=== PATIENT | female | born 1975 | race Caucasian/White ===

== ENCOUNTER → 2016-08-03 | Outpatient (CLI) | payer OTHER ==
[~2016-08-03] MED LIST: ACIPHEX 20 MG T20 MG PO; ALLERGY10 M1 PO; AURALGAN OT10 ML/BOT OT; CIPRO HC 0.2%-110 ML OT; DOXYCYCLINE HY100 MG PO; HYOSCYAMINE0.125 M6 SL; METOPROLOL 25 M25 MG PO; METOPROLOL SUCC50 M1 PO; PYRIDIUM100 MG PO; TRAZODONE 50MG50 MG PO; VICODIN 5/500 T1 TAB PO; VOLTAREN75 MG PO; ZITHROMAX Z PA250 MG PO; ZOLPIDEM TART12.5 MG PO; [UNRECOGNIZED DRUG - OTHER] OP
--- NOTE | 2016-08-03 16:31 | RADIOLOGY REPORT PS360 ---
US PELVIS-TRANSVAGINAL ONLY ORDERING PHYSICIAN : Joni Sanchez MD PATIENT AGE: 40 years GENDER: Female INDICATION: PLQ PAIN RLQ pain vomiting diarrhea 1 day. Patient deposition. TECHNIQUE: Transvaginal pelvic ultrasound COMPARISON: Previous CT abdomen and pelvis 04/27/2013 FINDINGS UTERUS.: Normal size 6.4 cm length x2.8 x 3.6 cm wide. No fibroids. Tiny echogenic focus along endometrial stripe at body of uterus.- Nonspecific may reflect small calcification or tiny polyp possibly. Endometrial stripe however appears fairly normal measuring 4.5 mm AP but may become slightly more generous towards cervix.. No fluid at cul-de-sac. Right Ovary 1.9 cm x 2.8 cm x 2 cm with transabdominal imaging. . Small follicle 9 mm size. Vaguely evident Difficult to visualize right ovary. Was scanned both transvaginal and trans abdominal in order to survey right adnexa as well as right lower quadrant. Right ovary Measurements are slightly larger with the transabdominal scanning versus Tv. Left Ovary larger than right Left ovary: 2.9 cm x 1.8 cm x 1.53 cm Follicular Cysts at left ovary: Largest measuring nearly 1.2 cm x 0.8 cm posteriorly. Another more anteriorly measuring 1.1 cm IMPRESSION: Ovaries appear relatively small/normal size bilateral with bilateral follicular cysts. More posterior right ovary more difficult to visualize Right adnexa & RLQ image image with transvaginal and transabdominal scanning. No additional findings seen RLQ with limited ultrasound survey No fluid in cul-de-sac more towards right adnexa. Uterus appears normal in size. Small echogenic focus endometrium mid right uterus reflect small calcification. Doubt tiny polyp
--- NOTE | 2016-08-03 16:31 | RADIOLOGY REPORT PS360 ---
US ABD(COMPLETE-MULTI ORGANS ORDERING PHYSICIAN : Joni Sanchez MD PATIENT AGE: 40 years GENDER: Female INDICATION: PLQ PAIN Nausea and vomiting right lower quadrant pain TECHNIQUE: ] Ultrasound abdomen, complete COMPARISON: CT abdomen pelvis 04/27/2013 FINDINGS Pancreas unremarkable Liver. No focal lesions. No bili ductal dilatation. Portal vein normal direction flow. Normal size. Gallbladder. Surgically absent Common duct measuring up to 6 mm just inferior to the hilum of liver. Upper normal caliber likely reflecting previous cholecystectomy changes. Kidneys appear normal size and appearance bilaterally. Cortex well-maintained bilateral . No hydronephrosis nor mass. Either kidney Right kidney. 9.6 cm length Left kidney 9.8 cm length Spleen. Normal size unremarkable. 9.5 cm length. Aorta normal caliber. No aneurysm. It measures up to 1.6 cm proximal and then Tapers as it continues distal IMPRESSION-------- Unremarkable ultrasound upper abdomen. No abnormalities identified Gallbladder surgically removed. Slight Generous common duct-just over 7 mm size reflecting previous cholecystectomy Kidneys unremarkable
== END ==
LOC: RAD 12:53
DX: R10.31 Right lower quadrant pain (principal)

== ENCOUNTER 2016-08-04 11:08 | Emergency (ER) | payer OTHER ==
[~2016-08-04] VITALS: Ht 167.6 cm; Wt 97.5 kg
[~2016-08-04 11:08] MED LIST changes: -DOXYCYCLINE HY100 MG PO; -HYOSCYAMINE0.125 M6 SL; -METOPROLOL SUCC50 M1 PO; -ZOLPIDEM TART12.5 MG PO
[2016-08-04] MEDS ORDERED: HYOSCYAMINE0.125 M6 SL (11:25)
[2016-08-04] MEDS ORDERED: DOXYCYCLINE HY100 MG PO (11:25)
[2016-08-04] MEDS ORDERED: ZOLPIDEM TART12.5 MG PO (11:28)
--- NOTE | 2016-08-04 11:28 | Emergency Room Report ---
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 N Clinical Suspician of Infection? N Mental Status: 1 - Regular (Normal Baseline) Sepsis Risk:Low Sepsis Risk Have you (or family members/close friends) recently traveled outside the [place]? N If Yes, where/when: Have you had exposure to infectious disease within the past month? N TB? Other? Specify: Watery stools for the last 2.5 days, started on Doxy for acne ten days ago. No fever. No blood from above or below. No sick contacts. Cramping in periumbilical area and RUQ and RLQ with negative US done yesterday per PCP Dr. Sanchez. LMP ten years ago, on Depo. No vaginal discharge or bleeding; some dysuria. No flank pain. No flu sx. NPO since yesterday due to diminished appetite and cramping when trying to drink fluids. ALLERGIES Coded Allergies: Penicillins (10/21/15) Home Medications Active Scripts NAPHAZOLINE HCL/PHENIRAMINE (Visine-A Eye Drops) 1 DROP OP 5XDAY 7 Days Prov: 03/18/14 Reported Medications Hyoscyamine Sulfate 0.125 MG SL DAILY #60 Doxycycline Hyclate 100 MG PO DAILY #60 Zolpidem Tartrate (Zolpidem Tartrate ER) 12.5 MG PO DAILY #30 Metoprolol Succinate Xl (Metoprolol ER 50MG) 50 MG PO DAILY #90 Loratadine 10 MG PO DAILY Rabeprazole Sodium (Aciphex 20Mg) 20 MG PO DAILY Metoprolol Tartrate (Metoprolol 25MG) 25 MG PO DAILY History Medical History General Angina: No [place]: No Hypertension? Yes Hyperlipidemia? No CHF? No COPD? No Asthma? No CVA? No Seizures? No Diabetes? No GB Disease: No Arthritis? Yes MRSA? No TB? No Cancer? 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 Physical Exam Vital Signs Vital Signs Date Time Temp Pulse Resp B/P Pulse O2 O2 Flow FiO2 Ox Delivery Rate 08/04 1348 79 20 120/75 97 08/04 1247 103 20 112/69 96 08/04 1114 98.4 138 18 127/90 97 General Appearance normal appearance, WD/WN, no apparent distress Eye Exam - bilateral eye normal exam Neck normal inspection, supple, full range of motion Respiratory Status Yes: trachea midline, chest symmetrical, non tender chest. No: respiratory distress, tender on palpation, use of accessory muscles, pain on inspiration, pain on expiration, productive cough, non productive cough. Lung Sounds bilateral: normal breath sounds, lungs clear. Cardiovascular normal exam, no peripheral edema, no gallop, no JVD, tachycardia Gastrointestinal normal bowel sounds, soft, no organomegaly, no guarding, no rebound (minimally tender RUQ/RLQ), neg psoas and neg obturator signs Neurologic alert, normal exam, no motor/sensory deficits Skin intact, normal color Medical Decision Making LABS/Meds/Orders Pt receiving controlled substance in ED? No Results/Orders Laboratory Tests 08/04/16 1208: Urine Color YELLOW, Urine Appearance SL CLOUDY, Urine pH 6.0, Ur Specific [place] >= 1.030, Urine Protein 1+ H, Urine Ketones TRACE H, Urine Blood 1+ H , Urine Nitrate NEGATIVE, Urine Bilirubin NEGATIVE, Urine Urobilinogen 0.2, Ur Leukocyte Esterase NEGATIVE, Urine WBC 3-5, Ur Squamous Epith Cells 5-10, Urine Bacteria 3+, Fine Granular Casts OCC, Urine Mucus 4+, Urine Glucose NEGATIVE 08/04/16 1140: Sodium 137, Potassium 3.0 L, Chloride 103, Carbon Dioxide 20 L, BUN 18, Creatinine 0.9, Estimated Creat Clear 127, Estimated GFR (MDRD) 69, Glucose 109 H, Calcium 8.6, Total Bilirubin 0.4, AST 22, ALT 44, Alkaline Phosphatase 88, Total Protein 7.6, Albumin 3.8, Globulin 3.8 H, Albumin/Globulin Ratio 1.0 L, Lipase 63 L, WBC 6.0, RBC 5.38, Hgb 16.0, Hct 47.5 H, MCV 88.2, RDW 14.0, Plt Count 218, MPV 10.0, Gran % 69.5, Gran # 4.2, Lymphocytes % 19.5, Monocytes % 7.9, Eosinophils % 2.6, Basophils % 0.4, Lymphocytes # 1.2, Monocytes # 0.5, Eosinophils # 0.2, Basophils # 0.0, PUBS MCHC 33.8, MCH 29.8 Current Medication Orders Sig/Tom Start time Last Medication Dose Route Stop Time Status Admin Potassium Chloride 0 .STK-MED ONE 08/04 1305 DC .ROUTE Lactated Ringer's 1,000 ML .STK-MED ONE 08/04 1300 DC IV Potassium Chloride 0 .STK-MED ONE 08/04 1300 DC PO Ondansetron HCl 0 .STK-MED ONE 08/04 1259 DC .ROUTE Ondansetron HCl 4 MG ONCE ONE 08/04 1215 DC 08/04 IV 08/04 1216 1308 Potassium Chloride 20 MEQ ONCE ONE 08/04 1215 DC 08/04 PO 08/04 1216 1307 Sodium Chloride 10 ML PRN PRN 08/04 1145 AC IV 08/05 1131 Lactated Ringer's 1,000 ML .STK-MED ONE 08/04 1143 DC IV Lactated Ringer's 1,000 ML .Q1H1M 08/04 1130 DC 08/04 IV 08/04 1230 1145 Sodium Chloride 10 ML PRN PRN 08/04 1130 AC IV 08/05 1130 Orders Procedure Date/time Status DIET-NOTHING BY MOUTH 08/04 D Active CULTURE, URINE 08/04 1208 Active ELECTROCARDIOGRAM REQUEST 08/[address] ABD/PELVIS REQ 08/04 1143 Active IV SALINE LOCK 08/04 1131 Active URINALYSIS/COMPLETE 08/04 1131 Complete URINE 08/04 1131 Complete LIPASE 08/04 1131 Complete CBC WITH AUTO DIFF 08/04 1131 Complete CHEM 12 PROFILE 08/04 1131 Complete 12 LEAD EKG-JOVANNI (INITIAL) 08/04 UNK Active CM/EKG CM/EKG EKG rate, NSR, rhythm, no ectopy, normal QRS, normal [place], normal EKG (slightly flat T waves ) XRAY/CT/US XRAY/CT/US CT abdomen, pelvis CT interpretation by reviewed by me (report reviewed) Time results known: 1331 CT Results normal/NAD (neg acute per radiology) Departure Departure Time of Disposition 1331 Disposition DC Home or Self Care(routine) Clinical Impression Primary Impression: Diarrhea Qualifiers: Diarrhea type: unspecified type Qualified Code: R19.7 - Diarrhea, unspecified Secondary Impressions: Hypokalemia Condition STABLE Referrals José Miguel Dumont MD (Family) Patient Instructions Diarrhea Additional Instructions Stop Doxycycline; see Dr. Dumont in two to five days, push Gatorade and other clear fluids Discharge Counseling Counseled pt/family regarding diagnosis, test results, home care, follow up needs ED Critical Care Critical Care No at 1351
[2016-08-04] MEDS ORDERED: METOPROLOL SUCC50 M1 PO (11:29)
[2016-08-04 11:50] LABS: LYMPH # 1.2 K/mm3 (0.7-4.5); LYMPH % 19.5 % (10-50.0)
[2016-08-04 12:12] LABS: URINE BLOOD 1+ (NEG)
[2016-08-04 12:15] LABS: URINE BILIRUBIN - DIPSTICK NEGATIVE (NEG)
--- NOTE | 2016-08-04 13:10 | RADIOLOGY REPORT PS360 ---
CT ABD PELVIS W/O CONTRAST CLINICAL INDICATION: DIMINISHED APPETITE FOR 3 DAYS,DIARRHEA,RUQ,RLQ ABD PAIN ORDERING PHYSICIAN: Amy Haque MD PATIENT AGE: 40 years COMPARISON: None TECHNIQUE: Axial images obtained with sagittal and coronal reformats. PROCEDURE: Oral Contrast: None IV Contrast: None . FINDINGS: Lower thorax: No acute finding ABDOMEN: Liver: No masses or biliary dilatation. Gallbladder: Status post cholecystectomy. No obvious biliary dilatation Pancreas: No masses or peripancreatic fluid collections. Spleen: Unremarkable. Adrenals: Unremarkable Kidneys/ureters: No masses. Nonobstructive right renal calculi. No hydronephrosis. No perinephric fluid collections. No ureteral dilatation or obvious ureteral calculi. Stomach bowel: Nondistended. No obvious mass or thickening. Appendix: No evidence of appendicitis. PELVIS: Reproductive: Unremarkable Bladder: Nondistended. No obvious stones or masses. ABDOMEN & PELVIS: Peritoneum: No abnormal fluid collections. No obvious inflammatory changes. No free air. Lymph nodes: No enlarged lymph nodes apparent. Vasculature: No evidence of abdominal aortic aneurysm. No retroperitoneal hemorrhage evident. Bones: No acute fracture IMPRESSION: 1. No acute intra-abdominal or pelvic pathology. 2. Prior cholecystectomy 3. Nonobstructing right renal calculus
[2016-08-04 14:00] VITALS: BP 128/74
== END 2016-08-04 14:05 | disposition home or self-care (01) ==
LOC: ER 11:08
PROVIDERS: Emergency Medicine
DX: R19.7 Diarrhea, unspecified (principal); E87.6 Hypokalemia; I10 Essential (primary) hypertension
CPT/HCPCS: J2405

== ENCOUNTER → 2016-08-05 | Outpatient (CLI) | payer OTHER ==
[~2016-08-05] MED LIST changes: +DOXYCYCLINE HY100 MG PO; +HYOSCYAMINE0.125 M6 SL; +METOPROLOL SUCC50 M1 PO; +ZOLPIDEM TART12.5 MG PO
[2016-08-05 12:44] LABS: AEROMONAS NOT DETECTED (NOT DETECTE); ASTROVIRUS NOT DETECTED (NOT DETECTE); CYCLOSPORA CAYETANENSIS NOT DETECTED (NOT DETECTE); E COLI O157 NOT DETECTED (NOT DETECTE); ENTEROAGGREGATIVE E COLI NOT DETECTED (NOT DETECTE); ENTEROPATHOGENIC E COLI NOT DETECTED (NOT DETECTE); ENTEROTOXIGENIC E COLI NOT DETECTED (NOT DETECTE); SAPOVIRUS NOT DETECTED (NOT DETECTE); SHIGA-LIKE TOXIN PROD. E COLI NOT DETECTED (NOT DETECTE); SHIGELLA/ENTEROINVASIVE E COLI NOT DETECTED (NOT DETECTE); VIBRIO CHOLERAE NOT DETECTED (NOT DETECTE)
[2016-08-05 19:25] LABS: NOROVIRUS DETECTED (NOT DETECTE)
== END ==
LOC: LAB 12:43
PROVIDERS: Physician Assistant
DX: R19.7 Diarrhea, unspecified (principal)

== ENCOUNTER 2017-05-04 18:48 | Emergency (ER) | payer OTHER ==
[~2017-05-04] VITALS: Ht 167.6 cm; Wt 83.9 kg
[~2017-05-04 18:48] MED LIST changes: +CYMBALTA60 MG PO; +IBUPROFEN800 MG PO
--- OUTSIDE RECORDS SUMMARY | 2017-05-04 18:54 | External Medical Summary Rpt | CCD ---
Author Author [facility] Address Unknown Phone Purpose Continuity of Care Document - through 2016
--- OUTSIDE RECORDS SUMMARY | 2017-05-04 18:54 | External Medical Summary Rpt | CCD ---
Author Author [employer] Organization [employer] Address Unknown Phone Unavailable Purpose Continuity of Care Document - through 2016
--- OUTSIDE RECORDS SUMMARY | 2017-05-04 18:54 | External Medical Summary Rpt ---
Author Author [facility]IR Otoole, SAMIR Otoole Organization [employer] Address Unknown Phone Unavailable
--- OUTSIDE RECORDS SUMMARY | 2017-05-04 18:54 | External Medical Summary Rpt | CCD ---
Demographics Preferred Language Greek Marital Status Unknown Jehovah'S Witness Affiliation Unknown Race Unknown Ethnic Group Unknown Author Author SAMIR Address Unknown Phone Immunization No patient found.
--- OUTSIDE RECORDS SUMMARY | 2017-05-04 18:54 | External Medical Summary Rpt | CCD ---
Demographics Preferred Language Tongan Marital Status Unknown Yazdanism Affiliation Unknown Race Unknown Ethnic Group Unknown Author Author SAMIR Address Unknown Phone Immunization No patient found.
[2017-05-04 19:05] LABS: HEMOGLOBIN 15.2 g/dL (12.2-16.2); LYMPH % 25.5 % (10-50.0)
--- NOTE | 2017-05-04 19:08 | Emergency Room Report ---
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 Clinical Suspician of Infection? Mental Status: Sepsis Risk: Have you (or family members/close friends) recently traveled outside the [place]? If Yes, where/when: Have you had exposure to infectious disease within the past month? TB? Other? Specify: Source patient, RN notes reviewed, family, RN/MD Exam Limitations no limitations Comment This is a 41-year-old feel patient brought in by EMS after having a witnessed epileptic episode, described by her has a tonicoclonic seizure. Patient is postictally confused upon arrival in the emergency room, unaware of date, location, purpose of her ER visit. denies any urinary incontinence or biting of the tongue. According to the the patient has been seeing a psychiatrist in [place], Dr. Elli Flores, who has been treating her for bipolar disorder and anxiety. Her psychotropic medications have been frequently changed in the past few months, as patient has been resistant to different treatments. Hospital advised the patient is also taking a deep packs for weight loss. He was able to bring her medications from home which at this time proved to be Ambien, Wellbutrin XL 150 mg, Adipex, AcipHex. Review of patient's medical records revealed that she has also been on Lamictal just a few months ago, Abilify and Cymbalta. ALLERGIES Coded Allergies: Penicillins (10/21/15) Home Medications Active Scripts Ibuprofen (Ibuprofen 800MG) 800 MG PO QIDP PRN pain #30 TAB Prov: 11/30/16 Reported Medications Doxycycline Hyclate 100 MG PO DAILY #60 Metoprolol Succinate Xl (Metoprolol ER 50MG) 50 MG PO DAILY #90 Loratadine 10 MG PO DAILY Rabeprazole Sodium (Aciphex 20Mg) 20 MG PO DAILY DULOXETINE HCL (Cymbalta 60MG) 60 MG PO DAILY History Medical History General CAD? No Angina: No [place]: No Hypertension? Yes Hyperlipidemia? No CHF? No DVT? No PE? No COPD? No Asthma? No Anemia? No GERD? No Gastric ulcers? No GI Bleed? No Hernia? No Thyroid Problems? No Hypothyroidism? No CVA? No Seizures? No Diabetes? No Renal Insuffiency? No End Stage Renal Disease? No UTI? No Stones? No BPH? No GB Disease: No Nephritic Syndrome? No Asplenia? No Hepatitis? No Sickle Cell Disease? No Arthritis? Yes Migraines? No Cataracts? No Glaucoma? No MRSA? No HIV? No TB? No Anxiety? No Depression? No Cancer? No Immunization Hx DT/Tetanus NOT SURE Surgical Hx Previous Surgery?Y SHOUDLER SURGERY D & C Exp.lap RIGHT WRIST HERNIATED DISC CHOLEY L FOOT Family History Family Hx Diabetes Yes Hypertension Yes Hyperlipidemia Yes Cancer Yes TB Yes Social History Alcohol Alcohol: No Review of Systems All Other Systems Reviewed and Negative Psychiatric/Neurological see HPI, seizure Physical Exam Vital Signs Vital Signs Date Time Temp Pulse Resp B/P Pulse O2 O2 Flow FiO2 Ox Delivery Rate 05/04 2147 97.7 94 16 137/80 100 05/04 2045 97.7 94 16 137/80 100 05/04 1935 96 16 128/80 96 05/04 1907 97.7 103 22 127/89 99 General Appearance normal appearance, WD/WN, mild distress Eye Exam - bilateral eye normal exam, bilateral eye PERRL, bilateral eye EOMI, bilateral eye other (normal fundi) Neck normal inspection, non-tender, supple, full range of motion Respiratory Status Yes: trachea midline, chest symmetrical, non tender chest. No: respiratory distress. Lung Sounds bilateral: normal breath sounds, lungs clear. 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 No Comment 1800 - patient appears medically stable, clinically improving, more alert and not also oriented 3. 18:10-case discussed with patient's neurologist, Dr. Flores in [place], who confirmed the patient has been seeing him for anxiety as well as bipolar disorder and that she has been tried on multiple medications recently including Lamictal, Abilify, and most recently Wellbutrin and Cymbalta. Patient has took upon herself to discontinue the Abilify, stating that "is not helping". The psychiatrist was unaware that the patient has been taking Adipex simultaneously with his psychotropic medications. However after finding out the patient has been taking Adipex, the psychiatrist stated that he is now explaining all her symptoms. Dr. Flores recommended patient to also see the neurologist, Dr. Araceli Posey, in [place] upon discharge from the emergency room. 18:30 -she continues to improve, she is now ambulatory to the bathroom, AAOx3. Advised patient that she would immediately need to discontinue the Wellbutrin as well as the Adipex, also keep her appointment for May 06 at [address] Flores, and also schedule follow-up appointment with Dr. Araceli Posey, urologist, in [place]. Results/Orders Laboratory Tests 05/04/171929: Opiates Screen NEGATIVE, Urine Methadone Screen NEGATIVE, Barbiturates NEGATIVE, Phencyclidine Screen NEGATIVE, Amphetamines Screen POSITIVE H, Benzodiazepines Screen NEGATIVE, Cocaine Screen NEGATIVE, Marijuana (THC) Screen NEGATIVE, Urine Color YELLOW, Urine Appearance CLEAR, Urine pH 5.5, Ur Specific [place] >= 1.030 , Urine Protein 1+ H, Urine Ketones NEGATIVE, Urine Blood 1+ H, Urine Nitrate NEGATIVE, Urine Bilirubin NEGATIVE, Urine Urobilinogen 0.2, Ur Leukocyte Esterase NEGATIVE, Urine RBC OCC, Urine WBC 3-5, Ur Squamous Epith Cells 3-5, Urine Bacteria 2+, Hyaline Casts 20-50, Urine Mucus 2+, Urine Glucose NEGATIVE 05/04/171899: Sodium 139, Potassium 3.3 L, Chloride 101, Carbon Dioxide 17 L, BUN 20 H, Creatinine 1.3 H, Estimated Creat Clear 75, Estimated GFR (MDRD) 45 L, Glucose 121 H, Calcium 9.7, Total Bilirubin 0.5, AST 14 L, ALT 25, Alkaline Phosphatase 103, Creatine Kinase 108, CK-MB (CK-2) Rel Index 1.3, CK and CKMB Interp 1.4, Troponin I < 0.02, Total Protein 8.1, Albumin 4.5, Globulin 3.6 H, Albumin/Globulin Ratio 1.3, APTT 24.4, WBC 11.5 H, RBC 5.10, Hgb 15.2, Hct 46.4 , MCV 91.0, RDW 12.2, Plt Count 277, MPV 9.1, Gran % 67.6, Gran # 7.8, Lymphocytes % 25.5, Monocytes % 5.9, Eosinophils % 0.6, Basophils % 0.5, Lymphocytes # 3.0, Monocytes # 0.7, Eosinophils # 0.1, Basophils # 0.1, PUBS MCHC 32.6, MCH 29.7, Salicylates 0.8 L, Acetaminophen 0 L, Alcohols 0 Current Medication Orders Sig/Tom Start time Last Medication Dose Route Stop Time Status Admin Acetaminophen 0 .STK-MED ONE 05/04 2143 DC PO Acetaminophen 0 .STK-MED ONE 05/04 2133 DC PO Acetaminophen 1,000 MG ONCE ONE 05/04 2130 DC 05/04 PO 05/04 Sodium Chloride 1,000 ML .Q1H1M 05/04 1945 DC 05/04 IV 05/04 Sodium Chloride 10 ML PRN PRN 05/04 1945 DCD IV 05/05 1936 Sodium Chloride 1,000 ML .Q1H1M 05/04 1930 DC 05/04 IV 05/04 Sodium Chloride 10 ML PRN PRN 05/04 1930 DCD IV 05/05 1918 Sodium Chloride 1,000 ML .STK-MED ONE 05/04 1922 DC IV Orders Procedure Date/time Status DIET-NOTHING BY MOUTH 05/05 B Active ELECTROCARDIOGRAM REQUEST 05/04 2008 Active CULTURE, URINE 05/04 1930 Active DRUG ABUSE SCREEN (10) 05/04 1853 Complete CHEST-PORTABLE 05/04 1852 Active SALICYLATE 05/04 1852 Complete ALCOHOL 05/04 1852 Complete Acetaminophen 05/[address] HEAD W/O CONTRAST 05/04 1851 Active URINALYSIS/COMPLETE 05/04 1851 Complete PARTIAL THROMBOPLASTIN TIME 05/04 1851 Complete URINE 05/04 1851 Complete CBC WITH AUTO DIFF 05/04 1851 Complete CARDIAC ENZYMES 05/04 1851 Complete CHEM 12 PROFILE 05/[address] HEAD REQ 05/04 1849 Complete 12 LEAD EKG-JOVANNI (INITIAL) 05/04 UNK Active 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 of ischemic chgs, no ectopy, normal QRS, normal [place], normal EKG, no EKG for comparison, non-spec. ST/Twave chgs, ST elevation, ST depression, LBBB, RBBB, ectopy, abnormal Q waves XRAY/CT/US XRAY/CT/US CT head CT interpretation by reviewed by me, discussed w/radiologist CT Results normal/NAD (no ICH), no fracture seen Departure Departure Time of Disposition 1907 Disposition DC Home or Self Care(routine) Clinical Impression Primary Impression: Drug-induced seizure Condition STABLE Referrals ELLI FLORES on 05/06/17 at 5pm. ARACELI POSEY Please call the office in the morning and request a follow-up appointment within the next 2 days. Patient Instructions DI for Adverse Drug Reaction -- Other, DI for Seizure Disorder -- Adult Additional Instructions You're epileptic episode tonight appears to have been triggered by a combination of two medications that you are currently on: ADIPEX and WELLBUTRIN (Buproprion ). Please discontinue both immediately. Please do not climb on heights, operate machinery, drive, till seen and evaluated by both the psychiatrist, Dr. Flores, as well as the neurologist, Dr. Posey. Please have somebody watch her closely over the next 24 hours, for any possible, recurrent seizures. Discharge Counseling Counseled pt/family regarding diagnosis, test results, medications/RX, home care, follow up needs Comment You're epileptic episode tonight appears to have been triggered by a combination of two medications that you are currently on: ADIPEX and WELLBUTRIN (Buproprion ). Please discontinue both immediately. Please do not climb on heights, operate machinery, drive, till seen and evaluated by both the psychiatrist, Dr. Flores, as well as the neurologist, Dr. Posey. Please have somebody watch her closely over the next 24 hours, for any possible, recurrent seizures. ED Critical Care Critical Care No at 0025
[2017-05-04 19:41] LABS: BUN 20 mg/dL (7-18); GFR (ESTIMATED) 45 ML/MIN (59-)
[2017-05-04 19:44] LABS: URINE BILIRUBIN - DIPSTICK NEGATIVE (NEG); URINE BLOOD 1+ (NEG)
[2017-05-04 19:55] LABS: AMPHETAMINES/METAMPHETAMINES POSITIVE ng/mL (<1000)
[2017-05-04 21:47] VITALS: BP 137/80
--- NOTE | 2017-05-05 07:52 | RADIOLOGY REPORT PS360 ---
CHEST-PORTABLE HISTORY: Confusion, altered mental status, altered level of consciousness AMS ORDERING PHYSICIAN: Sebas Agnuiano MD PATIENT AGE: 41 years COMPARISON: None available FINDINGS: The cardiomediastinal silhouette and pulmonary vascularity are within normal limits. There are increased markings in the lung bases probably related to vascular crowding. Cannot exclude atelectasis or infiltrate in the left lung base. Bone plate is present over the lower cervical spine. No acute bony anomalies. IMPRESSION: 1. Probable vascular crowding in the lung bases. 2. Cannot exclude patchy infiltrate/atelectasis in the left lung base. Consider upright PA and lateral chest for further evaluation
--- NOTE | 2017-05-05 08:11 | RADIOLOGY REPORT PS360 ---
CT HEAD W/O CONTRAST HISTORY: Altered mental status, memory loss, confusion or disorientation AMS ORDERING PHYSICIAN: Sebas Anguiano MD PATIENT AGE: 41 years COMPARISON: None TECHNIQUE: Axial images obtained without contrast. Brain and bone windows reviewed. FINDINGS: No midline shift, mass effect, intracranial hemorrhage, hydrocephalus, or extra-axial fluid collection is evident. The calvarium has an unremarkable appearance. No mastoid effusion. The visualized paranasal sinuses are unremarkable. IMPRESSION: Negative CT head without contrast. No acute finding.
== END 2017-05-04 21:50 | disposition home or self-care (01) ==
LOC: ER 18:48
PROVIDERS: Emergency Medicine
DX: R56.9 Unspecified convulsions (principal); Z88.0 Allergy status to penicillin; I10 Essential (primary) hypertension; F41.9 Anxiety disorder, unspecified